=== PATIENT | female | born 1970 | race Caucasian/White ===

== ENCOUNTER 2023-12-01 20:07 | Emergency (ER) | payer BC ==
[2023-12-01] MEDS ORDERED: Acetaminophen 500 MG TAB ONE (21:49)
== END 2023-12-01 22:25 | disposition home or self-care (01) ==
LOC: NAV ERS 20:07
DX: T50.6X1A Poisoning by antidotes and chelating agents, accidental (unintentional), initial encounter (principal); F41.9 Anxiety disorder, unspecified; I10 Essential (primary) hypertension; Z79.899 Other long term (current) drug therapy
CPT/HCPCS: 99283